=== PATIENT | female | born 1990 | race Two or more races ===

== ENCOUNTER 2022-01-27 17:14 | Emergency (ER) | payer BC ==
[2022-01-27 17:26] VITALS: BP 121/71
--- NOTE | 2022-01-27 17:32 | ED Physician Documentation ---
PD HPI LOWER EXT INJURY - Stated complaint Stated Complaint: FELL, RT ANKLE INJURY - Chief complaint Chief Complaint: Trauma Ext - History obtained from History obtained from: Patient - History of Present Illness PD HPI LOW EXT INJURY LOCATION: Right, Ankle Type of injury: Fall (she states ankle rolled and she fell, with pain at ankle and dificulty/pain with walking. Bought crutches at [employer]. Having more swelling.) Timing - onset: Last night Timing - details: Abrupt onset, Still present Worsened by: Moving, Palpating, Other (weight bearing) Associated symptoms: Swelling. No: Weakness, Numbness Contributing factors: No: Anticoagulated, Prior ortho surgery Similar symptoms before: Diagnosis (has had ankle sprains in the area.) Recently seen: Not recently seen Review of Systems Constitutional: denies: Fever, Chills Skin: denies: Abrasion (s), Laceration (s) Neurologic: denies: Focal weakness, Numbness PD PAST MEDICAL HISTORY - Past Medical History Past Medical History: No - Present Medications Home Medications: Ambulatory Orders Medication Instructions Recorded Confirmed Escitalopram [Lexapro] 10 mg PO DAILY 01/27/22 01/27/22 - Allergies Allergies/Adverse Reactions: Allergies Allergy/AdvReac Type Severity Reaction Status Date / Time vancomycin Allergy Anaphylaxis Verified 01/27/22 17:23 - Social History Does the pt smoke?: No Smoking Status: Never smoker PD ED PE NORMAL - Vitals Vital signs reviewed: Yes - General General: Alert and oriented X 3, No acute distress, Well developed/nourished - Derm Derm: Normal color, Warm and dry - Extremities Extremities: Other (right ankle with swelling and tender laterally and some posteriorly. No gross instability but hurts with stress testing. Achilles firm. Normal color and cap refill. Proximal fibular not tender. ) - Neuro Neuro: Alert and oriented X 3, No motor deficit, No sensory deficit, Normal speech Results - Vitals Vitals: Vital Signs - 24 hr 01/27/22 17:24 Temperature 37.0 C Heart Rate 76 Respiratory 16 Rate Blood Pressure 121/71 O2 Saturation 100 Oxygen O2 Source Room air - Rads (name of study) right ankle Radiology: Prelim report reviewed, EMP read contemporaneously (small bone fragment old vs new at posterior talus. ), See rad report PD MEDICAL DECISION MAKING - ED course Complexity details: reviewed results (no gross fracture. Small bone piece posterior talus, consider avulsion fx. Rest without fracture. ), considered differential, d/w patient ED course: lives in [facility]. Flying back in 5 days. Cautioned her to elevated/ice often to reduce swelling, and to be attentive to developing swelling/pain in upper calf/etc. Is only 5 hour flight. Departure - Departure Disposition: 01 Home, Self Care Clinical Impression: Fall from slip, trip, or stumble Qualifiers: Encounter type: initial encounter Qualified Code(s): W01.0XXA - Fall on same level from slipping, tripping and stumbling without subsequent striking against object, initial encounter Ankle sprain Qualifiers: Encounter type: initial encounter Involved ligament of ankle: unspecified ligament Laterality: right Qualified Code(s): S93.401A - Sprain of unspecified ligament of right ankle, initial encounter Closed avulsion fracture of right talus Qualifiers: Encounter type: initial encounter Fracture alignment: nondisplaced Qualified Code(s): S92.154A - Nondisplaced avulsion fracture (chip fracture) of right talus, initial encounter for closed fracture Condition: Stable Record reviewed to determine appropriate education?: Yes Instructions: ED Sprain Ankle W X Ray Comments: Elevate rest and ice your ankle and leg often today and tomorrow to reduce swelling. Continue with your crutches for partial to no weightbearing as needed for comfort. Use the walking cast boot for immobilizing the ankle to aid in its healing. The x-ray showed normal view of the malleolar part of the ankle bones (on the sides). There was a possible small avulsion on the back part of the talus which is the top part of the foot. This would represent a ligamentous partial tear and not really treated as a fracture per se. I would anticipate improvement over the next several days as the swelling goes down and over the first week or so with the initial healing. It could likely take 3 to 4 weeks for good healing. Follow-up with your primary care back home in [place] when if not improved over the next week or so. Tylenol ibuprofen or both if needed for pains. Discharge Date/Time: 01/27/22 18:05
[2022-01-27] MEDS ORDERED: IBUPROFEN 600 MG TABLET PO STA (17:47)
[2022-01-27] MEDS ORDERED: ACETAMINOPHEN 325 MG TABLET PO STA (17:47)
--- NOTE | 2022-01-27 17:56 | XRAY Report ---
PROCEDURE: Ankle 3 View RT INDICATIONS: Trauma TECHNIQUE: 3 views of the ankle were acquired. COMPARISON: None FINDINGS: Bones: No fractures or dislocations. Ankle mortise is normally aligned. No suspicious bony lesions . Soft tissues: No tibiotalar joint effusion. Achilles tendon appears normal. IMPRESSION: No acute fracture. No osseous lesion. If symptoms and/or clinical suspicion for patholog y continue, further assessment with repeat plain films, or advanced imaging (e.g., CT, MRI, or bone s can) is recommended for further assessment. Reviewed by: Antonieta Trammell MD on 01/27/2022 5:55 PM PDT Approved by: Antonieta Trammell MD on 01/27/2022 5:55 PM PDT Station ID: [id number]
== END 2022-01-27 18:05 | disposition home or self-care (01) ==
LOC: ED 17:14
DX: S93.401A Sprain of unspecified ligament of right ankle, initial encounter (principal); S92.154A Nondisplaced avulsion fracture (chip fracture) of right talus, initial encounter for closed fracture; X50.1XXA Overexertion from prolonged static or awkward postures, initial encounter; W18.30XA Fall on same level, unspecified, initial encounter
CPT/HCPCS: 73610; 99283; A9270